=== PATIENT | female | born 1945 ===

== ENCOUNTER → 2021-07-14 08:00 | Outpatient (CLI) | payer OTHER | END | disposition home or self-care (01) | LOC: ADM 07:45 → LAB 08:00 → EDSTATUS 07-16 07:45 → CIR.AMB 07-16 07:45 | PROVIDERS: ATTEND Specialist | DX: U07.1 COVID-19 (principal); K80.10 Calculus of gallbladder with chronic cholecystitis without obstruction; E03.8 Other specified hypothyroidism; E11.9 Type 2 diabetes mellitus without complications ==

== ENCOUNTER 2021-09-10 05:00 | Inpatient (IN) | payer OTHER ==
[~2021-09-10 05:00] MED LIST: ATORVASTATIN CA10 MG PO; MELATONIN5 M1 PO; ZESTRIL2.5 MG PO
== END 2021-09-12 11:10 | disposition home or self-care (01) | DRG 419 ==
LOC: CIR.AMB 05:00 → SURG 15:11 → O/R 15:11 → SURG 15:19
PROVIDERS: ADMIT Specialist; ATTEND Specialist
PROC: BF13YZZ Fluoroscopy of Gallbladder and Bile Ducts using Other Contrast (ICD-10-PCS; 2021-09-10)
PROC: 0FT44ZZ Resection of Gallbladder, Percutaneous Endoscopic Approach (ICD-10-PCS; principal; 2021-09-10 07:00)
DX: K80.10 Calculus of gallbladder with chronic cholecystitis without obstruction (principal); Z20.822 Contact with and (suspected) exposure to COVID-19